=== PATIENT | female | born 1945 | race Caucasian/White ===

== ENCOUNTER 2018-09-13 18:08 | Emergency (ER) | payer MEDICARE, OTHER ==
[~2018-09-13] VITALS: Ht 162.6 cm; Wt 73.6 kg
--- NOTE | 2018-09-13 19:03 | NUR ---
ASSUMING CARE OF PT. AT THIS TIME.
[2018-09-13 19:11] LABS: BASOPHILS # (AUTO) 0.01 x10^3/uL (0-0.1); BASOPHILS % (AUTO) 0 % (0-1); EOSINOPHILS # (AUTO) 0.08 x10^3/uL (0-0.4); EOSINOPHILS % (AUTO) 1 % (1-7); LYMPHOCYTES # (AUTO) 1.39 x10^3/uL (1-3.4); LYMPHOCYTES % (AUTO) 22 % (22-44); MD NO; MEAN CORPUSCULAR HEMOGLOBIN 31.1 pg (27.0-34.8); MEAN CORPUSCULAR HGB CONC 32.5 g/dL (32.4-35.8); MEAN CORPUSCULAR VOLUME 95.6 fL (80-100); MEAN PLATELET VOLUME 7.5 fL (7.4-10.4); MONOCYTES # (AUTO) 0.71 x10^3/uL (0.2-0.8); MONOCYTES % (AUTO) 11 % (2-9); NEUTROPHILS # (AUTO) 4.27 x10^3/uL (1.8-6.8); NEUTROPHILS % (AUTO) 66 % (42-75); PLATELET COUNT 265 x10^3/uL (130-400); RED BLOOD COUNT 4.38 x10^6/uL (3.82-5.3); RED CELL DISTRIBUTION WIDTH 13.9 % (9.6-15.2)
--- NOTE | 2018-09-13 19:19 | NUR ---
INITIAL CONTACT WITH PT. PT. HERE WITH [facility]INAH. C/O FEELING GENERALIZED WEAKNESS X 6 WEEKS. STATES "EVERYTIME I EAT I HAVE DIARRHEA AFTERWARDS". DENIES ANY RECENT ABX USE OR BEING AROUND SICK PEOPLE. PT. DID AMBULATE DOWN [place] TO BR WITH STEADY GAIT. CT HAS BEEN DONE/ LABS HAVE BEEN DRAWN.
[2018-09-13 19:21] LABS: ALANINE AMINOTRANSFERASE 33 U/L (12-78); ALBUMIN 3.5 g/dL (3.4-5.0); ANION GAP 7 mmol/L (5-15); CHLORIDE 102 mmol/L (98-107)
[2018-09-13 19:26] LABS: ALKALINE PHOSPHATASE 132 U/L (45-117); BILIRUBIN,TOTAL 0.2 mg/dL (0.2-1.0); TOTAL PROTEIN 7.3 g/dL (6.4-8.2); TROPONIN I < 0.015 ng/mL (0.000-0.045)
--- NOTE | 2018-09-13 19:33 | NUR ---
PT. AMBULATORY BACK TO ROOM FROM BATHROOM. PT. DENIES ANY PAIN OR URINARY SYMPTOMS. MONITORS PLACED. CALL LIGHT IN REACH. DAUGHTER REMAINS AT BS FOR SUPPORT.
--- NOTE | 2018-09-13 20:07 | NUR ---
DR. JEONG AT TO DISCUSS FINDINGS AND POC WITH PT. AND FAMILY.
[2018-09-13 20:08] VITALS: BP 142/75
== END 2018-09-13 20:24 | disposition home or self-care (01) ==
LOC: ED 20:17
DX: R25.1 Tremor, unspecified (principal); R53.1 Weakness; R19.7 Diarrhea, unspecified; R42 Dizziness and giddiness; R11.2 Nausea with vomiting, unspecified; G40.909 Epilepsy, unspecified, not intractable, without status epilepticus; I10 Essential (primary) hypertension; Z88.6 Allergy status to analgesic agent; Z88.5 Allergy status to narcotic agent
CPT/HCPCS: 36415; 70450; 80053; 84484; 85025; 93005; 99284

== ENCOUNTER → 2019-03-13 | Outpatient (CLI) | payer MEDICARE, OTHER | END | disposition home or self-care (01) | LOC: RAD 07:06 | PROVIDERS: ATTEND Internal Medicine Gastroenterology | DX: K22.8 Other specified diseases of esophagus (principal); K44.9 Diaphragmatic hernia without obstruction or gangrene; I10 Essential (primary) hypertension; F41.9 Anxiety disorder, unspecified; E03.9 Hypothyroidism, unspecified; G40.909 Epilepsy, unspecified, not intractable, without status epilepticus; E78.00 Pure hypercholesterolemia, unspecified; Z68.31 Body mass index [BMI] 31.0-31.9, adult | CPT/HCPCS: 74245 ==